=== PATIENT | male | born 1995 | race Caucasian/White ===

== ENCOUNTER 2025-05-05 16:05 | Emergency (ER) | payer BC, SELFPAY ==
[2025-05-05 16:12] VITALS: BP 117/82
--- NOTE | 2025-05-05 16:50 | ED.GENMED ---
History of Present Illness
General
Chief Complaint: Heart Rate Problem
Time Seen by Provider: 05/05/25 16:34
History of Present Illness
History of Present Illness:
FOCUSED PAST MEDICAL HISTORY
- No significant past medical history
REVIEW OF OLD RECORDS
- The patient had operative repair of left ACL injury 2018
Note:
CHIEF COMPLAINT(S)
Irregular heartbeat, palpitations.
HISTORY OF PRESENT ILLNESS
The patient is a 29-year-old male who presented with an abnormal heart rhythm beginning on Sunday night. He reports experiencing shortness of breath, which he describes as feeling restricted when attempting to take a deep breath, but denies any
dizziness. The patient describes palpitations and acknowledges sensing an irregular heartbeat. Onset of symptoms was noted on Sunday around 8 PM, with exacerbation over the following days, lasting for about a day and a half to two days. The patient
wears an Apple Watch, which indicated irregular heartbeat notifications. He has not previously consulted a weed controller but had an Electrocardiogram (EKG) performed by his family doctor in the past, which showed normal results. The patient reports
occasional episodes aligned with alcohol consumption, particularly on weekends. He identifies palpitations as the predominant symptom and experiences shortness of breath only with physical exertion, such as bringing laundry from the basement. He
notes a change in resting heart rate from 40-45 beats per minute to 90 bpm with fluctuations. No other medications or stimulants like pseudoephedrine have been taken.
SOCIAL HISTORY
The patient consumes alcohol primarily on weekends (Fridays and Saturdays). He indicates a possible correlation between alcohol use and episodic irregular heartbeats.
REVIEW OF SYSTEMS
- Cardiovascular: Palpitations.
- Respiratory: Shortness of breath on exertion.
PHYSICAL EXAM
General: Alert, no acute distress.
Skin: Warm, dry.
Head: Normocephalic, atraumatic.
Neck: Supple, trachea midline.
Eyes, Ears, Nose, Mouth, and Throat: Oral mucosa moist.
Cardiovascular: Normal peripheral perfusion, no edema. Irregular rhythm, tachycardic, no murmurs
Respiratory: Respirations are non-labored.
Gastrointestinal: Abdomen nondistended.
Back: Normal range of motion, normal alignment.
Musculoskeletal: Normal range of motion, normal strength.
Neurological: Alert and oriented to person, place, time, and situation, no focal neurological deficit observed.
Psychiatric: Cooperative, appropriate mood and affect.
PROBLEM LIST
- Acute: Irregular heartbeat, palpitations. New onset atrial fibrillation.
PLAN
1. Administered a bolus of medication and a drip to manage heart rate, considering the use of a higher dose of Cardizem.
2. Consultation with a weed controller for further recommendations.
3. Considering starting anticoagulation therapy temporarily due to possible clot risk, following cardiology advice.
4. D-Dimer test ordered to rule out the presence of a blood clot; due to elevated levels, a computed tomography (CT) scan is planned to further investigate.
5. If the patient converts back to regular rhythm in the hospital, discharge is likely despite the CT scan.
DIFFERENTIAL DIAGNOSIS
The Differential Diagnosis includes, in no particular order and is not limited to:
1. Atrial Fibrillation
2. Paroxysmal Supraventricular Tachycardia
3. Premature Ventricular Contractions
4. Alcohol-induced Arrhythmia
5. Anxiety-related Heart Palpitations
6. Hyperthyroidism
7. Structural Heart Disease
8. Electrolyte Imbalance
9. Myocardial Ischemia
10. Anemia
RADIOLOGY
- CTA obtained and is negative for PE
EKG
- A-fib, ventricular rate 95, nonspecific ST abnormality
LABS
- CBC and chemistries unremarkable, D-dimer slightly elevated 0.81, troponin 0.012
SUMMARY OF ENCOUNTER
The patient, a 29-year-old male, presented to the emergency department with irregular heartbeat and palpitations that began on Sunday night. He reported shortness of breath on exertion. An initial concern for a blood clot prompted a D-Dimer test,
which was elevated, leading to a CT scan that ruled out the presence of a clot. Electrolytes, thyroid test, and markers for myocardial infarction were found to be normal. The patient was admitted for monitoring and administered a medication drip to
control heart rate but did not convert back to normal rhythm. Possible causes considered include alcohol and caffeine consumption. Recommendations include starting blood-thinning medication and considering a transesophageal echocardiogram (MARKUS) and
cardioversion, if necessary.
DISPOSITION
Discharge with follow-up.
ASSESSMENT
The patient is experiencing atrial fibrillation, possibly related to alcohol or caffeine use, resulting in palpitations and increased heart rate.
EMERGENCY TREATMENTS ADMINISTERED
Patient was kept on Cardizem (diltiazem) drip to manage heart rate.
MANAGEMENT OF THE PATIENTS CARE WAS DISCUSSED WITH
Consultation with Dr. Stevens from [facility].
PLAN
1. Continue monitoring in the emergency department for potential conversion to normal sinus rhythm.
2. Initiate oral beta-shawn to manage and reduce heart rate.
3. Start anticoagulation therapy with apixaban (Eliquis) as recommended by weed controller.
4. Advise follow-up with a weed controller for possible MARKUS and cardioversion.
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
INDEPENDENT REVIEW OF LABS AND INTERPRETATION OF TESTS
My independent review of D-Dimer was elevated, prompting a CT scan that showed no blood clot presence.
My independent review of cardiac markers was normal, suggesting no myocardial infarction.
My independent review of thyroid function tests was normal.
My independent review of electrolyte levels was normal.
PATIENT EDUCATION AND COUNSELING
The patient was advised to temporarily avoid alcohol and caffeine consumption. Detailed instructions were provided regarding the use of beta-blockers and anticoagulation therapy. The patient was informed about potential symptoms to monitor and to
follow-up with a weed controller for a more comprehensive evaluation and management plan.
FOLLOW-UP INSTRUCTIONS
Patient to follow up with weed controller for further evaluation and management, including consideration for potential MARKUS and cardioversion.
MEDICATION RECONCILIATION
1. Oral beta-shawn prescribed to slow heart rate.
2. Apixaban (Eliquis) prescribed for anticoagulation.
MEDICAL DECISION MAKING
Chronic conditions affecting care:
Atrial Fibrillation
-Data:
Category 1:
- CT scan independently reviewed to rule out blood clot, findings negative.
- Initial labs including electrolytes, thyroid function, and cardiac markers reviewed and interpreted as normal.
Category 3:
- Discussion of management with weed controller Dr. Naidu.
-Risk:
Prescription medication was prescribed: Apixaban (Eliquis) and a beta-shawn.
Consideration of Admission/Observation: Escalation of care including admission/observation was considered given the complexity and risk of the patients presenting complaint, exam findings, and/or their underlying comorbidities. However, ultimately,
I feel the patient is safe for outpatient management with close follow up. Reasoning: Work-up reassuring, does not reveal any acute life/organ threatening processes, patients symptoms well controlled upon reevaluation, reexamination is reassuring,
vitals are stable, patient agreeable with discharge, reliable for follow-up.
DIAGNOSIS
1. Atrial Fibrillation with RVR
UPDATE
- I discussed case with Dr. Stevens who agrees that it may not be safe to cardiovert at this time given the length of symptoms; he does recommend Eliquis and metoprolol.
- The patient's heart rate significant proved while on Cardizem. He has virtually no symptoms currently but remains in A-fib. Will place on metoprolol succinate and start Eliquis as recommended by weed controller he is to follow-up with them as an
outpatient.
Past History
Past History
ED Past Medical History: None
ED Past Surgical History: Other (hernia repair at 11 months)
Social History
Tobacco: Non-smoker
Living: other (college)
Employment: Student
Phy Exam
Physical Exam
Physical Exam:
See HPI
Course
Orders/Labs/Results
Orders:
Orders
05/05/25 16:06
Electrocardiogram (*1) Urgent
Reason for Study: Atrial Fibrillation
EKG- Treatment ONCE
05/05/25 16:26
EKG [Electrocardiogram (*1)] Urgent
Reason for Study: Atrial Fibrillation
EKG- Treatment ONCE
05/05/25 16:39
Complete Blood Count/With Diff Urgent
Comprehensive Metabolic Panel Urgent
D-Dimer Urgent
Magnesium Urgent
TSH Reflex To Free T4 Urgent
Troponin I Urgent
05/05/25 16:59
Diltiazem HCl [Cardizem] 15 mg IV NOW STA
05/05/25 17:00
Diltiazem 125 mg/125 ml Nss [Cardizem] 125 mg in 125 ml IV PER PROTOCOL
Initial dose in mg/hr, then titrate:: 10
Titrate to keep:: Heart rate 80-100 bpm
Titrate by mg/hr:: 5 mg/hr
Frequency of titrations (minutes):: 15
Maximum dose in mg/hr:: 15
05/05/25 17:13
CT Chest PE Study Urgent
Comment:
Reason For Exam: sob new afib; elevated ddimer
05/05/25 18:31
Metoprolol Xl [Toprol Xl] 25 mg PO NOW STA
05/05/25 18:33
Apixaban [Eliquis] 5 mg PO NOW STA
Abnormal Lab Results
05/05/25
16:39
Absolute Monos (auto) 0.8 H 10^3/uL
(0.1-0.6)
Monocytes % 11.6 H %
(1.7-9.3)
D-Dimer 0.81 H ug/mlFEU
(0.00-0.50)
ALT 51 H U/L
(0-50)
05/05/25 16:39
05/05/25 16:39
Vital Signs
Initial and Last Documented VS:
Initial Vital Signs
Temp Pulse Resp BP Pulse Ox
36.5 C 71 18 117/82 100
05/05/25 16:12 05/05/25 16:12 05/05/25 16:12 05/05/25 16:12 05/05/25 16:12
Last Documented Vital Signs
Temp Pulse Resp BP Pulse Ox
36.5 C 91 14 112/67 97
05/05/25 16:12 05/05/25 18:45 05/05/25 18:45 05/05/25 17:00 05/05/25 18:45
*Pulse Oximetry
SaO2: 100
Oxygen Mode of Delivery: Room air
Patient hypoxic: no
*Critical Care Note
Total Time (30-74mins, 75-104mins- exclusive of procedures): Not Applicable
ED Attending Note
-
Portions of this chart may have been created with voice recognition software.� Occasional wrong word or��sound alike� substitutions may have occurred due to the inherent limitations of voice recognition software.
Discharge Plan
Departure
Patient Disposition: Home (Routine Discharge)
Date of Disposition: 05/05/25
Time of Disposition: 18:40
Patient with high blood pressure during this ER visit?: Yes
Discharge Problem:
Atrial fibrillation with RVR
Instructions: Atrial Fibrillation (DC), Chest Pain DCA Follow Up, BLOOD PRESSURE
Prescriptions:
New
Eliquis 5 mg tablet
5 mg PO BID Qty: 60 0RF
metoprolol succinate 25 mg tablet extended release 24 hr
25 mg PO DAILY Qty: 30 0RF
No Action
Theragen Tablet
1 tab PO DAILY
zinc sulfate 50 mg zinc (220 mg) Tablet
50 mg PO DAILY
omega 2-mxr-[id number]-fish oil [Fish Oil] 1,000 (120-180) mg Capsule
1 cap PO DAILY
magnesium oxide 200 mg magnesium Tablet
200 mg PO DAILY
Referrals:
Monroe Stevens MD [Active, Cardiology]
Oscar Piedra DO [Family Provider, Family Practice]
Activity Restrictions/Additional Instructions:
Electrolytes including potassium and magnesium are normal. Your D-dimer level was higher than the threshold to rule out a blood clot by the blood test so we did a CAT scan and this shows no sign of blood clot in your lungs. Thyroid testing is
normal. Complete blood cell count is normal. Kidney function is normal. No sign of heart attack. I did notify Dr. Stevens with cardiology�call their office for follow-up. Dr. Stevens said that he will be notifying their office as well. He
recommends that you be discharged on Toprol and Eliquis. Eliquis is a blood thinner. This does increase bleeding and I recommend no vigorous sports activities while on Eliquis for now. If your heart rhythm goes back to normal and your heart rate
is in the 40's-50's, then stop the Metoprolol. I recommend not drinking any further alcohol or caffeine for now.
Interventions
Interventions:
*Risk Screen - Suicide Last Done: 05/05/25 16:12
*General Assessment Last Done: 05/05/25 16:12
*Neglect/Abuse Screening Last Done: 05/05/25 16:12
*ED- Fall Risk Assessment Last Done: 05/05/25 18:57
*ED COVID-19 Vaccine History Last Done: 05/05/25 16:20
*ED Influenza Vaccine History Last Done: 05/05/25 16:20
*Nursing Disposition Last Done: 05/05/25 18:57
ED- Cardiac Assessment Last Done: 05/05/25 16:37
ED- Pulmonary Assessment Last Done: 05/05/25 16:37
Discharge Date and Time
Discharge Date/Time: 05/05/25 19:00
Print Language: SAMI
[2025-05-05 16:54] LABS: Hematocrit 43.4 % (39.0-52.0); Hemoglobin 15.6 g/dL (13.0-18.0); Mean Corp Hgb Conc. 35.9 g/dL (33.0-37.0); Mean Corpuscular Volume 85.1 fL (80.0-94.0); Nucleated Red Blood Cells % 0 % (-); Platelet Count 239 10^3/uL (130-400); Red Cell Dist. Width 12.2 % (11.5-14.5)
[2025-05-05 16:56] VITALS: BP 114/84
[2025-05-05 17:00] VITALS: BP 112/67
[2025-05-05 17:00] LABS: D-Dimer 0.81 ug/mlFEU (0.00-0.50)
[2025-05-05 17:07] LABS: ALT (SGPT) 51 U/L (0-50); AST (SGOT) 40 U/L (17-59); Albumin 4.9 g/dl (3.5-5.0); Alkaline Phosphatase 50 U/L (38-126); Blood Urea Nitrogen 14 mg/dl (9-20); Calcium 9.3 mg/dl (8.4-10.2); Carbon Dioxide 27 mmol/L (22-30); Chloride 103 mmol/L (98-107); Glucose 99 mg/dl (70-99); Magnesium 1.9 mg/dl (1.6-2.3); Potassium 4.0 mmol/L (3.5-5.1); Sodium 136 mmol/L (135-145); Total Protein 7.9 g/dl (6.3-8.2); eGFR > 60.00
[2025-05-05 17:14] LABS: Troponin I 0.012 ng/ml
[2025-05-05] MEDS: CARDIZEM 15 MG IV (17:14)
[2025-05-05] MEDS: CARDIZEM 125 IV (17:15)
[2025-05-05] MEDS: TOPROL XL 25 MG PO (18:40)
[2025-05-05] MEDS: ELIQUIS 5 MG PO (18:40)
== END 2025-05-05 19:00 | disposition home or self-care (01) ==
LOC: EMR 16:05
PROVIDERS: EMERGENCY PHYSICIAN Emergency Medicine; FAMILY PHYSICIAN Family Medicine
DX: I48.91 Unspecified atrial fibrillation (principal)
CPT/HCPCS: 96374; 99284; 71275; 80053; 83735; 84443; 84484; 85025; 85379; 93005; Q9967

== ENCOUNTER 2025-05-15 07:06 | Day surgery (SDC) | payer BC, SELFPAY | END 2025-05-15 09:50 | disposition home or self-care (01) | LOC: CATH 07:06 | PROVIDERS: ATTENDING PHYSICIAN Internal Medicine; FAMILY PHYSICIAN Family Medicine; OTHER PHYSICIAN Internal Medicine Cardiovascular Disease | DX: I08.1 Rheumatic disorders of both mitral and tricuspid valves (principal); I51.3 Intracardiac thrombosis, not elsewhere classified; R00.2 Palpitations; I48.0 Paroxysmal atrial fibrillation; I47.10 Supraventricular tachycardia, unspecified; I25.9 Chronic ischemic heart disease, unspecified; E05.90 Thyrotoxicosis, unspecified without thyrotoxic crisis or storm | CPT/HCPCS: 93312; 93320; 93325 ==

== ENCOUNTER → 2025-05-27 09:22 | Outpatient (REF) | payer BC, SELFPAY | LOC: HWRCS 09:22 | PROVIDERS: ATTENDING PHYSICIAN Internal Medicine Cardiovascular Disease; FAMILY PHYSICIAN Family Medicine | DX: I48.91 Unspecified atrial fibrillation (principal); R07.89 Other chest pain; R06.02 Shortness of breath | CPT/HCPCS: 93306 ==

== ENCOUNTER → 2025-06-10 08:57 | Outpatient (REF) | payer BC, SELFPAY | LOC: MRI 08:57 | PROVIDERS: ATTENDING PHYSICIAN Internal Medicine Cardiovascular Disease; FAMILY PHYSICIAN Family Medicine | DX: R00.2 Palpitations (principal) | CPT/HCPCS: 75561; 75565; A9585 ==

== ENCOUNTER → 2025-06-12 13:24 | Outpatient (REF) | payer BC, SELFPAY | LOC: DHSLP 13:24 | PROVIDERS: ATTENDING PHYSICIAN Internal Medicine Cardiovascular Disease; FAMILY PHYSICIAN Family Medicine | DX: G47.33 Obstructive sleep apnea (adult) (pediatric) (principal) | CPT/HCPCS: 95800 ==